=== PATIENT | male | born 1985 | race American Indian/Alaskan Native ===

== ENCOUNTER 2020-09-05 16:03 | Emergency (ER) | payer OTHER ==
[2020-09-05] MEDS ORDERED: IBUPROFEN 800 MG TAB PO ONE (19:07)
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
[2020-09-05 21:18] VITALS: BP 141/95
== END 2020-09-05 20:47 | disposition home or self-care (01) ==
LOC: ED 16:03
DX: S39.012A Strain of muscle, fascia and tendon of lower back, initial encounter (principal); Z91.018 Allergy to other foods; V89.0XXA Person injured in unspecified motor-vehicle accident, nontraffic, initial encounter; Y93.89 Activity, other specified; Y92.89 Other specified places as the place of occurrence of the external cause; Y99.8 Other external cause status
CPT/HCPCS: 72100; 99283